=== PATIENT | female | born 1950 | race Caucasian/White ===

== ENCOUNTER 2020-12-03 08:06 | Outpatient (CLI) | payer OTHER ==
[~2020-12-03 08:06] MED LIST: CLONAZEPAM1 MG PO; DIOVAN160 M1 PO; GLIMEPIRIDE2 MG PO; LOVENOX30 MG/0.3 SUBCUTANEO; NAPROXEN SODIU550 M1 PO; NEXIUM 24HR20 MG PO; TRAZODONE HCL300 MG PO; TRIPLIX PO; ZANTAC150 MG PO
== END 2020-12-03 08:11 | disposition home or self-care (01) ==
LOC: RX STUDY 08:06
PROVIDERS: ATTEND Otolaryngology
DX: Q39.6 Congenital diverticulum of esophagus (principal)